=== PATIENT | male | born 1950 | race Two or more races ===

== ENCOUNTER 2018-10-13 18:31 | Emergency (ER) | payer MEDICARE ==
[~2018-10-13] VITALS: Ht 167.6 cm; Wt 81.2 kg
[2018-10-13 18:35] VITALS: BP 141/69
[2018-10-13 19:31] LABS: Basophils # (auto) 0 uL; Lymphocytes # (auto) 1.1 uL; Mean Corpuscular Hemoglobin 25.9 pg (28.0-32.0); Monocytes # (auto) 0.5 uL; Neutrophils # (auto) 4.4 uL; Nucleated Red Blood Cells % 0.1 %; White Blood Cell 6.2 10^3/uL (4.4-10.8)
[2018-10-13 19:33] LABS: Basophils % (auto) 0.4 % (0.0-2.0); Eosinophils # (auto) 0.2 uL; Hematocrit 34.4 % (41.0-53.0); Lymphocytes % (auto) 17.7 % (10.0-50.0); Mean Corpuscular Volume 80.7 fL (80.0-100.0); Monocytes % (auto) 7.6 % (0.0-12.0); Neutrophils % (auto) 71.3 % (37.0-80.0); Platelet Count (auto) 250 10^3/uL (140-450); Red Blood Cells 4.26 10^6/uL (4.5-5.90); Red Cell Distribution Width 14.6 % (11.8-14.3)
[2018-10-13 19:35] LABS: Alanine Aminotransferase 75 U/L (16-61); Albumin 3.2 g/dL (3.4-5.0); Anion Gap 9 (5-15); Aspartate Aminotransferase 61 U/L (15-37); BUN/Creatinine Ratio 16.3; Blood Urea Nitrogen 16 mg/dL (7-18); Calcium 8.3 mg/dL (8.5-10.1); Carbon Dioxide 25 mmol/L (21-32); Chloride 102 mmol/L (98-107); GFR African American 98 mL/min; GFR Non-African American 81 mL/min; Glucose 241 mg/dL (74-106); Magnesium 1.8 mg/dL (1.6-2.6); Sodium 136 mmol/L (136-145)
[2018-10-13 19:40] LABS: Alkaline Phosphatase 320 U/L (45-117); Bilirubin, Total 0.3 mg/dL (0.2-1.0); Total Protein 7.7 g/dL (6.4-8.2)
== END 2018-10-14 02:39 | disposition left against medical advice (07) ==
LOC: ER 18:31
DX: R07.89 Other chest pain (principal); R20.0 Anesthesia of skin; Z53.21 Procedure and treatment not carried out due to patient leaving prior to being seen by health care provider
CPT/HCPCS: 36415; 71046; 80053; 83735; 84484; 85025; 93005

== ENCOUNTER 2018-10-14 12:00 | Emergency (ER) | payer MEDICARE ==
[2018-10-14] MEDS ORDERED: ASPirin 81 mg TAB PO ONE (12:45)
== END 2018-10-14 18:53 | disposition home or self-care (01) ==
LOC: ER 12:00
DX: R07.89 Other chest pain (principal); E11.9 Type 2 diabetes mellitus without complications; Z86.73 Personal history of transient ischemic attack (TIA), and cerebral infarction without residual deficits
CPT/HCPCS: 93005